=== PATIENT | male | born 1975 | race Caucasian/White ===

== ENCOUNTER 2018-03-16 10:46 | Inpatient (IN) | payer OTHER ==
[~2018-03-16] VITALS: Ht 182.9 cm; Wt 97.1 kg
[2018-03-16 10:50] VITALS: BP 119/85
[2018-03-16 11:07] LABS: ABSOLUTE EOSINOPHILS 0.2 thou/uL (0.0-0.7); ABSOLUTE MONOCYTES 0.6 thou/uL (0.0-1.2); ABSOLUTE NEUTROPHILS 3.7 thou/uL (1.6-8.1); BASOPHILS 0.6 %; HEMATOCRIT 47.2 % (42.0-52.0); HEMOGLOBIN 15.9 gm/dL (14.0-18.0); LYMPHOCYTES 30.4 %; MCHC 33.7 g/dL (28.0-37.0); MCV 89.2 fL (80.0-100.0); MONOCYTES 9.1 %; MPV 8.2 fl. (7.2-11.1); NUCLEATED RBCS 0 /100WBC; PLATELET COUNT* 283 thou/uL (150-400); POLYS 56.9 %; RDW-CV 13.1 % (10.5-14.5); WBC 6.5 thou/uL (4.0-11.0)
[2018-03-16 11:19] LABS: ANION GAP 5 mmol/L (7-16); BUN 14 mg/dL (7-18); CALCIUM 8.7 mg/dL (8.5-10.1); CHLORIDE 106 mmol/L (98-107); CO2 31 mmol/L (21-32); CREATININE 0.9 mg/dL (0.6-1.3); GLUCOSE 87 mg/dL (70-99); SODIUM 142 mmol/L (136-145)
[2018-03-16 11:26] LABS: ALBUMIN 3.9 g/dL (3.4-5.0); ALKALINE PHOSPHATASE 72 U/L (46-116); SGOT 19 U/L (15-37); SGPT 27 U/L (30-65); TOTAL BILIRUBIN 0.4 mg/dL (<0.1-1.0); TOTAL PROTEIN 8.2 g/dL (6.4-8.2); TROPONIN-I LEVEL <0.06 ng/mL (<0.06)
[2018-03-16 11:45] LABS: APTT 30.4 Seconds (25.0-31.3)
[2018-03-16 15:10] VITALS: BP 116/85
[2018-03-16 15:12] VITALS: BP 121/84
[2018-03-16 20:00] VITALS: BP 130/72
[2018-03-17] VITALS: BP 103/55
[2018-03-17 04:00] VITALS: BP 94/48
[2018-03-17 05:22] LABS: CHOLESTEROL 285 mg/dL (<200); HDL CHOLESTEROL 29 mg/dL (>40); LDL CHOLESTEROL 212 mg/dL (<100); TC:HDL 9.8 Ratio (Not establshd); TRIGLYCERIDE 221 mg/dL (<150); VLDL 44 mg/dL (<40)
[2018-03-17 05:23] LABS: SERUM ASSESSMENT Clear
[2018-03-17 08:00] VITALS: BP 121/85
[2018-03-17 11:32] VITALS: BP 113/70
--- NOTE | 2018-03-17 12:55 | EKG ---
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
--- NOTE | 2018-03-17 12:55 | EKG ---
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 03/17/18 1255 1053 1053 Vincent Perdue MD, FACC /EPI
[2018-03-17 16:10] VITALS: BP 131/80
--- NOTE | 2018-03-17 17:51 | 2DMMODE ---
[place] [address] 2 D/M-MODE ECHOCARDIOGRAM Name: JERAD BROUSSARD Room: [address] IN [facility]#: [id number] Admission: 03/16/18 Attend Phys: Devante Erickson Discharge: Date of : 71 Date of Service: 03/17/18 1751 Report #: [id number] THIS REPORT FOR: //name// APPROVED REPORT Study performed: 03/17/2018 15:02:54 EXAM: Comprehensive 2D, Doppler, and color-flow Echocardiogram Patient Location: In-Patient Room #: 201 Status: routine BSA: 2.17 HR: 73 bpm BP: 94/48 mmHg Rhythm: NSR Indications Arrhythmia Atrial Fibrillation 2D Dimensions IVSd: 11.70 (7-11mm) LVOT Diam: 22.68 (18-24mm) LVDd: 51.52 mm PWd: 9.42 (7-11mm) Ascending Ao: 31.63 (22-36mm) LVDs: 26.75 (25-40mm) Aortic Root: 38.16 mm Volumes Left Atrial Volume (Systole) LA ESV Index: 29.50 mL/m2 Aortic Valve AoV Peak Hermilo.: 1.45 m/s AO Peak Gr.: 8.46 mmHg LVOT Max P.62 mmHg AO Mean Gr.: 4.55 mmHg LVOT Mean P.65 mmHg LVOT Max V: 0.95 m/s AO V2 VTI: 27.59 cm LVOT Mean V: 0.59 m/s MK (VTI): 2.86 cm2 LVOT V1 VTI: 19.53 cm Mitral Valve E/A Ratio: 1.31 MV Decel. Time: 203.05 ms MV E Max Hermilo.: 0.79 m/s MV PHT: 58.88 ms MVA (PHT): 3.74 [place]2 [place] [address] 2 D/M-MODE ECHOCARDIOGRAM Name: JERAD BROUSSARD Room: [address] IN [facility]#: [id number] Admission: 03/16/18 Attend Phys: Devante Erickson Discharge: Date of : 71 Date of Service: 03/17/18 1751 Report #: [id number] TDI E/Lateral E': 7.18 E/Medial E': 8.78 Medial E' Hermilo.: 0.09 m/s Lateral E' Hermilo.: 0.11 m/s Pulmonary Valve PV Peak Hermilo.: 1.45 m/s PV Peak Gr.: 8.43 mmHg Tricuspid Valve RAP Estimate: 5.00 mmHg TR Peak Gr.: 22.95 mmHg RVSP: 27.95 mmHg PA Pressure: 27.95 mmHg Left Ventricle The left ventricle is normal size. There is normal LV segmental wall motion. There is normal left ventricular wall thickness. Left ventricular systolic function is normal. The left ventricular ejection fraction is within the normal range. LVEF is 60-65%. The left ventricular diastolic function is normal. Right Ventricle The right ventricle is normal size. The right ventricular systolic function is normal. Atria Left atrium is mildly dilated. The right atrium size is normal. Aortic Valve The aortic valve is normal in structure. No aortic regurgitation is present. There is no aortic valvular stenosis. Mitral Valve The mitral valve is normal in structure. Trace mitral regurgitation. No evidence of mitral valve stenosis. Tricuspid Valve The tricuspid valve is normal in structure. Mild tricuspid regurgitation. No pulmonary hypertension. Pulmonic Valve The pulmonary valve is normal in structure. Trace pulmonic regurgitation[place] [address] 2 D/M-MODE ECHOCARDIOGRAM Name: JERAD BROUSSARD Room: [address] IN [facility]#: [id number] Admission: 03/16/18 Attend Phys: Devante Erickson Discharge: Date of : 71 Date of Service: 03/17/18 1751 Report #: [id number] The aortic root is normal in size. IVC is normal in size and collapses with >50% inspiration Pericardium There is no pericardial effusion. <Conclusion> LVEF is 60-65%. Left atrium is mildly dilated. <ELECTRONICALLY SIGNED> By: Vincent Perdue MD, FACC 03/17/181750 50 50 Vincent Perdue MD, FACC /INF
[2018-03-17 20:00] VITALS: BP 128/84
[2018-03-18] VITALS: BP 114/65
[2018-03-18 04:00] VITALS: BP 111/54
[2018-03-18 07:59] VITALS: BP 134/84
[2018-03-18 11:11] VITALS: BP 116/72
[2018-03-18] MEDS ORDERED: CARDIZEM CD240 MG PO (12:35)
[2018-03-18] MEDS ORDERED: ZETIA10 MG PO (12:36)
[2018-03-18 12:37] VITALS: BP 116/72
[2018-03-18] MEDS ORDERED: SYNTHROID25 MC1 PO (12:37)
--- NOTE | 2018-03-18 13:04 | EKG ---
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1975 Requested By: Vincent Perdue Order Number: [id number] Reading MD: Chris Arrieta Measurements Intervals [place] Rate: 71 P: 42 LA: 192 QRS: 46 QRSD: 107 T: 23 QT: 425 QTc: 462 Interpretive Statements Sinus rhythm Baseline wander in lead(s) V1,V2 Compared to ECG 03/16/2018 11:08:11 Atrial fibrillation no longer present Myocardial infarct finding no longer present Electronically Signed On 03-18-2018 13:04:05 CDT by Chris Arrieta [email or web address] <ELECTRONICALLY SIGNED> By: Chris Arrieta MD, [facility] 03/18/18 1304 0845 0845 Chris Arrieta MD, [facility] /EPI
--- NOTE | 2018-03-21 08:12 | CON ---
[address] [address] CONSULTATION Name: JERAD BROUSSARD Room: [address] IN [facility].#: [id number] Admission: 03/16/18 Attend Phys: Kenyetta Gallegos Discharge: 03/18/18 Date of : 71 Report #: [id number] THIS REPORT FOR: //name// CC: YESI physician/PCP Devante Erickson DATE OF SERVICE: 03/17/2018 TYPE OF REPORT: Cardiology consultation. HISTORY OF THE PRESENT ILLNESS: The patient is a 42-year-old single white male who I was asked to see in the hospital today after he was noted to be in atrial fibrillation. The patient states that for years, he has had occasional episodes where his heart will skip a few beats. This lasts only a few seconds. It happens 2-3 times a year. He does occasionally feel lightheaded if he stands up too quickly. He has had no previous cardiac evaluation. He does not see a doctor on a regular basis. He notes that two nights ago, he was at the [employer] and drank a couple of beers, which is not unusual. Saturday morning 2 days ago, he woke up with a headache. Yesterday morning, he again woke up with a headache. He then noticed his heart beating fast and irregular. His cousin drove him to the Emergency Room. He is found to be in atrial fibrillation. He was started on IV diltiazem to slow the ventricular response rate. Final last night after presenting 12 hours previously, he converted to sinus rhythm. I was asked to see him for further evaluation and treatment. He denied any recent fever. He denies exertional chest pain, dyspnea on exertion, syncope or edema. PAST MEDICAL HISTORY: He has had no surgical procedures. He was told in the past he had high cholesterol. He has no history of diabetes or hypertension. He is currently on no medication alone the past, he was tried on a statin drug but developed muscle weakness. ALLERGIES: He has no known drug allergies. FAMILY HISTORY: Negative for heart disease. SOCIAL HISTORY: He is from his . He is retired from the [employer]. 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 He spends a lot of his time in [place]. His 2 children actually live in [place]. He currently does not have a stationary at home. Currently lives with family here in [place]. His mom lives in [place]. No smoking. Occasionally drinks alcohol. He does smoke marijuana on a daily basis. No significant caffeine use. He stays active, bicycling, hiking and kayaking. REVIEW OF SYSTEMS: He has had no history of stroke. He has had headaches in the past. No history of asthma or peptic ulcer disease. He apparently has had elevated liver function studies in the past. No kidney disease[place] [address] CONSULTATION Name: JERAD BROUSSARD Room: [address]#: [id number] Admission: 03/16/18 Attend Phys: Kenyetta Gallegos Discharge: 03/18/18 Date of : 71 Report #: [id number] was diagnosed with anxiety disorder while in the . No chronic skin condition. PHYSICAL EXAMINATION: GENERAL: Revealed a middle-aged male, appeared in no distress. VITAL SIGNS: His blood pressure 120/80, pulse is 80 and he was afebrile. HEENT: He was anicteric. Conjunctivae pink. Mucous membranes are moist. NECK: Veins do not appear distended. Neck is supple. CHEST: Clear to auscultation. CARDIOVASCULAR: Regular rate and rhythm without rub or murmur. ABDOMEN: Soft. EXTREMITIES: Had no edema. Dorsalis pedis pulse 2+ on the right. Posterior tibial pulse 2+ in the left. SKIN: Cool and dry. NEUROLOGICAL: Nonfocal. LYMPHATIC: No adenopathy. MUSCULOSKELETAL: No joint effusion. RADIOLOGICAL DATA: His ECG on admission showed atrial fibrillation with an increased ventricular response rate. Currently, appears to be in a sinus rhythm. His workup so far, he had a chest x-ray on admission that showed normal heart size and clear lung uribe. CT scan with contrast of the chest on admission that showed no pulmonary embolus or dissection. LABORATORY DATA: His lab work: Sodium 142 and creatinine 0.9. Troponin 0.06. Cholesterol 285, triglyceride 221, HDL 29 and LDL 212. TSH is 5.6. White blood cell count 6.5 and hemoglobin 15.9. IMPRESSION AND RECOMMENDATIONS: 1. Atrial fibrillation. I would recommend an echocardiogram. I would avoid stimulants including marijuana, alcohol. At this time, I would recommend antiarrhythmic therapy. I would consider sotalol. The patient has a MARLA score of 0, so I would not recommend anticoagulation at this time. 2. History of anxiety disorder. 3. Elevated TSH. If persistent, I would consider thyroid replacement. 4. Hyperlipidemia. The patient cannot tolerate statin drugs. I would suggest a low fat diet and Zetia. If LDL remains greater than 160, I would consider injections of a PCSK9 inhibitor. <ELECTRONICALLY SIGNED> By: Vincent Perdue MD, [facility] 03/21/18 0812 0814 0849David Juan Perdue MD, [facility] /nt
== END 2018-03-18 13:30 | disposition home or self-care (01) | DRG 310 ==
LOC: M.ERS 10:46 → M.TBA-ER 14:28 → M.2W 14:28
PROVIDERS: Personal Emergency Response Attendant; ADMIT Internal Medicine
DX: I48.91 Unspecified atrial fibrillation (principal); E78.00 Pure hypercholesterolemia, unspecified; F41.9 Anxiety disorder, unspecified; E03.9 Hypothyroidism, unspecified; Z80.8 Family history of malignant neoplasm of other organs or systems; Z83.3 Family history of diabetes mellitus; Z83.49 Family history of other endocrine, nutritional and metabolic diseases